=== PATIENT | female | born 1990 | race Caucasian/White ===

== ENCOUNTER 2017-05-17 20:22 | Emergency (ER) | payer SELFPAY ==
[2017-05-17 20:51] LABS: URINE HCG POC HCG NEGATIVE (Negative)
[2017-05-17 21:28] LABS: ADD MAN DIFF? NO
[2017-05-17 21:30] LABS: BASO % 1 % (0-3); EOS % 1 % (0-3); HEMOGLOBIN 14.6 g/dL (12.0-15.5); LYMPH # 1.1 x10^3/uL (1.0-4.8); LYMPH % 24 % (24-48); MEAN CORPUSCULAR HEMOGLOBIN 31 pg (25-35); MEAN CORPUSCULAR HGB CONC 34 g/dL (31-37); MEAN CORPUSCULAR VOLUME 90 fL (79-100); MONO # 0.5 x10^3/uL (0.0-1.1); MONO % 11 % (0-9); NEUT % 64 % (31-73); PLATELET COUNT 128 x10^3/uL (140-400); RED BLOOD COUNT 4.76 x10^6/uL (3.50-5.40); RED CELL DISTRIBUTION WIDTH 13.8 % (11.5-14.5); WHITE BLOOD COUNT 4.7 x10^3/uL (4.0-11.0)
[2017-05-17] MEDS: ONDANSETRON PF 4 MG/2 ML VIAL. IV ×2 (21:33)
[2017-05-17] MEDS: IV NORMAL SALINE 1000ML BAG 1,000 ML IV ×2 (21:33)
[2017-05-17 21:41] LABS: ANION GAP 8 (6-14); BLOOD UREA NITROGEN 8 mg/dL (7-20); BUN/CREATININE RATIO 13 (6-20); CALCIUM 8.5 mg/dL (8.5-10.1); CARBON DIOXIDE 30 mmol/L (21-32); CHLORIDE 100 mmol/L (98-107); CREATININE 0.6 mg/dL (0.6-1.0); GFR 118.2; GLUCOSE 99 mg/dL (70-99); POTASSIUM 3.4 mmol/L (3.5-5.1); SODIUM 138 mmol/L (136-145)
[2017-05-17 21:48] LABS: ALBUMIN 3.5 g/dL (3.4-5.0); ALBUMIN/GLOBULIN RATIO 0.9 (1.0-1.7); ALK PHOS 50 U/L (46-116); ALT (SGPT) 21 U/L (14-59); AST (SGOT) 21 U/L (15-37); LIPASE 111 U/L (73-393); TOTAL BILIRUBIN 0.2 mg/dL (0.2-1.0); TOTAL PROTEIN 7.4 g/dL (6.4-8.2)
== END 2017-05-17 22:07 | disposition home or self-care (01) ==
LOC: ER 20:22
DX: A08.4 Viral intestinal infection, unspecified (principal); F17.200 Nicotine dependence, unspecified, uncomplicated; F12.10 Cannabis abuse, uncomplicated; Z88.2 Allergy status to sulfonamides; Z88.1 Allergy status to other antibiotic agents; Z88.7 Allergy status to serum and vaccine
CPT/HCPCS: 36415; 80053; 81025; 83690; 85025; 96361; 96374; 99284-25; J2405; J7030